=== PATIENT | female | born 1960 | race Caucasian/White ===

== ENCOUNTER → 2016-11-04 | Outpatient (CLI) | payer OTHER ==
[~2016-11-04] MED LIST: MULT-506 PO
[2016-11-04 13:47] LABS: URINE APPEARANCE CLEAR (CLEAR); URINE BILIRUBIN NEG (NEG); URINE COLOR YELLOW; URINE EPITHELIAL CELL AUTO 0-5 /lpf (0-5); URINE NITRITE NEG (NEG); URINE PH 5.5 (4.5-7.5); URINE SPECIFIC GRAVITY 1.009 (1.000-1.030); UROBILINOGEN NEG (NEG)
[2016-11-04 13:51] LABS: MANUAL MICROSCOPIC REQUIRED? NO; REVIEW REQ? NO
== END | disposition home or self-care (01) ==
LOC: C.LABBC 11:08
PROVIDERS: ATTEND Internal Medicine Geriatric Medicine
DX: C50.919 Malignant neoplasm of unspecified site of unspecified female breast (principal); S39.012A Strain of muscle, fascia and tendon of lower back, initial encounter; X58.XXXA Exposure to other specified factors, initial encounter

== ENCOUNTER → 2017-01-07 | Outpatient (CLI) | payer OTHER ==
--- NOTE | 2017-01-08 07:38 | MAMMOGRAPHY REPORT ---
BILATERAL DIGITAL SCREENING MAMMOGRAM TOMOSYNTHESIS WITH CAD: 01/07/2017 CLINICAL HISTORY: Routine screening examination. Personal history of left breast cancer status post treatment. TECHNIQUE: Breast tomosynthesis in addition to standard 2D mammography was performed. Current study was also evaluated with a Computer Aided Detection (CAD) system. COMPARISON: Comparison is made to exams dated: 12/12/2015 mammogram, 11/30/2013 mammogram, 11/24/2012 m ammogram, 11/19/2011 mammogram, 11/13/2010 mammogram, and 05/08/2010 mammogram - [facility] enter. BREAST COMPOSITION: The tissue of both breasts is extremely dense, which lowers the sensitivity of mammography. FINDINGS: There are possibly regional punctate microcalcifications in the superior right breast, be st seen on the MLO view but thought to project laterally based on the CC view. Additional spot magn ification views are recommended. There are expected post treatment changes in the left breast, with asymmetry of the size of the melanie sts. A few surgical clips are seen in the lower inner posterior aspect of the breast. There are a few benign rim calcifications bilaterally. No other suspicious mass, architectural distortion or cl uster of microcalcifications is seen. IMPRESSION: ACR BI-RADS CATEGORY 0: INCOMPLETE EVALUATION: NEED ADDITIONAL IMAGING EVALUATION The possible regional punctate microcalcifications in the superior right breast needs additional leslie luation. The patient will be called to schedule an appointment. Approximately 10% of breast cancers are not detected with mammography. A negative mammographic repor t should not delay biopsy if a clinically suggestive mass is present. Valeria Best M.D. ay/:01/07/2017 17:17:42 Health Sanitarian: Lesley CUNNINGHAM(R)(M), [facility] letter sent: Addl Imaging 0 BI-RADS Code: ACR BI-RADS Category 0: Incomplete Evaluation: Need Additional Imaging Evaluation
== END | disposition home or self-care (01) ==
LOC: C.MAMM 12:25
PROVIDERS: ATTEND Internal Medicine
DX: Z12.31 Encounter for screening mammogram for malignant neoplasm of breast (principal); Z85.3 Personal history of malignant neoplasm of breast; R92.8 Other abnormal and inconclusive findings on diagnostic imaging of breast

== ENCOUNTER → 2017-01-13 | Outpatient (CLI) | payer OTHER ==
--- NOTE | 2017-01-13 16:08 | MAMMOGRAPHY REPORT ---
UNILATERAL RIGHT DIGITAL DIAGNOSTIC MAMMOGRAM: 01/13/2017 CLINICAL HISTORY: 56 are old woman with a personal history of left breast cancer status post treatme nt callback from screening mammography for possible punctate regional microcalcifications in the sup erior right breast. TECHNIQUE: Spot magnification right CC and ML views were obtained. COMPARISON: Comparison is made to exams dated: 12/12/2015 mammogram, 12/06/2014 mammogram, 11/30/2013 ma mmogram, 11/24/2012 mammogram, 11/19/2011 mammogram, and 11/13/2010 mammogram - [facility] enter. BREAST COMPOSITION: The tissue of the right breast is extremely dense, which lowers the sensitivity of mammography. FINDINGS: There are a few round and punctate microcalcifications scattered in the superior right elsa ast. Additionally, there are a few loosely grouped faint punctate microcalcifications in the far chacon perior right breast on the spot magnification ML view. There are no suspicious linear branching or pleomorphic microcalcifications. When comparing to prior available mammograms, the faint punctate m icrocalcifications are slightly more conspicuous compared to remote mammograms although some are pre sent dating back to 2010 on the MLO view. The increased conspicuity may be in part due to differenc es in technique changing equipment from [employer] to [employer]. No obvious associated mass or architectural distortion in this area. IMPRESSION: ACR BI-RADS CATEGORY 0: INCOMPLETE EVALUATION: NEED ADDITIONAL IMAGING EVALUATION 1. There is slight increased conspicuity of faint punctate microcalcifications that are scattered an d loosely grouped in the superior right breast, best seen on the spot magnification ML view. Some o f these microcalcifications were seen on prior standard MLO views dating back to at least 2010, and the changes may be in part due to technical differences switching from [employer] to [employer]. However, given the personal history of left breast cancer and extremely dense breasts further evalu ation with a bilateral breast MRI is recommended to exclude the possibility of non-mass enhancement in this area or any other suspicious enhancement bilaterally. 2. Pending MRI results, as long as there is no suspicious associated enhancement, would recommend f ollow-up diagnostic mammograms of the right breast including spot magnification views in 6 months. These results and recommendations were discussed with the patient at the time of the exam. She tent atively scheduled the follow-up appointments prior to leaving our department. Approximately 10% of breast cancers are not detected with mammography. A negative mammographic repor t should not delay biopsy if a clinically suggestive mass is present. Valeria Best M.D. ay/:01/13/2017 15:14:30 Supervisor Taping: Lesley Kraft, [facility] letter sent: Addl Imaging 0 BI-RADS Code: ACR BI-RADS Category 0: Incomplete Evaluation: Need Additional Imaging Evaluation
== END | disposition home or self-care (01) ==
LOC: C.MAMM 14:08
PROVIDERS: ATTEND Internal Medicine
DX: R92.1 Mammographic calcification found on diagnostic imaging of breast (principal); R92.0 Mammographic microcalcification found on diagnostic imaging of breast

== ENCOUNTER → 2017-02-03 | Outpatient (CLI) | payer OTHER ==
[~2017-02-03] MED LIST changes: +GADAVIST IV PRN
--- NOTE | 2017-02-04 12:17 | MAMMOGRAPHY REPORT ---
BREAST MRI OF BOTH BREASTS : 02/03/2017 CLINICAL HISTORY: 56-year-old woman with a personal history of left breast cancer diagnosed in 1999, status post lumpectomy. There are increasingly conspicuous faint punctate microcalcifications in t he superior right breast for which MRI was recommended to exclude corresponding abnormal non-mass en hancement. COMPARISON: Comparison is made to exams dated: 01/07/2017 mammogram, 12/12/2015 mammogram, 12/06/2014 surya mogram, 11/30/2013 mammogram, 11/24/2012 mammogram, and 11/19/2011 mammogram - [facility] nter. TECHNIQUE: Using a 1.5 Johana magnet and dedicated breast coil, multisequence axial images were obtai freddy through the breasts. After uneventful IV administration of 6.5 mL of Gadavist, dynamic multipha se contrast-enhanced axial images, and sagittal postcontrast were obtained. Temporal subtraction ax ial images and 3-D MIP images are provided. Everything was then reviewed on a 3-D workstation, [id number]. FINDINGS: Right breast: There is minimal background parenchymal enhancement of the right breast. There is no regional or segmental non-mass enhancement in the superior right breast to correlate with the faint microcalcifications seen mammographically. Given the mammographic stability back to approximately 2 011 these are most likely benign, but follow-up diagnostic mammograms including repeat spot magnific ation views are recommended to ensure stability in 6 months. No suspicious spiculated or enhancing mass is seen. However, there is a single focus versus 2 adjacent foci of non-mass enhancement in th e approximate 9:00 right breast, 4.5 cm distal to the nipple (axial image 75/116), measuring 3.8 x 4 .7 mm. No corresponding T2 hyperintensity appreciated. There are mixed persistent and plateau kine tics. Although these foci may be within the range of normal background, given the conspicuity and l ack of prior available exams to ensure stability, a short interval follow-up breast MRI is recommend ed in 6 months. No focal skin thickening or nipple retraction is seen in the right breast. The ret romammary fat is intact. No suspicious right axillary, subpectoral or internal mammary lymphadenopa thy is identified. Left breast: There is no significant background parenchymal enhancement of the left breast. There i s susceptibility artifact in the 9:00 and 10:00 posterior left breast as well as within the left axi lla, from previous lumpectomy and axillary lymph node sampling. There is also asymmetry of the size of the breasts likely related to prior treatment within the left breast. No new suspicious enhanci ng mass, non-mass enhancement or suspicious kinetics are identified in the left breast. No focal sk in thickening or evidence of nipple retraction. No suspicious left axillary, subpectoral or interna l mammary lymphadenopathy. Note is made of pectus excavatum of the chest. IMPRESSION: ACR-BI-RADS CATEGORY 3: PROBABLY BENIGN 1. There is no suspicious non-mass enhancement or enhancing mass in the superior right breast to co rrespond to the faint punctate regional microcalcifications seen mammographically. The microcalcifi cations are probably benign, but follow-up diagnostic right mammograms including spot magnification views are recommended to ensure stability in 6 months. 2. There are 2 adjacent foci versus a single focus of non-mass enhancement within the approximate 9 :00 right breast, measuring 3.8 x 4.7 mm, that could be within the range of background. However, a short interval follow-up breast MRI is recommended to ensure stability in 6 months. 3. Expected post-therapeutic changes in the left breast, without MRI evidence of malignancy. The patient will receive written notification of the results. Valeria Best M.D. ay/:02/03/2017 23:17:47 Inspector Returned Materials: hat brim curler, [facility] letter sent: Follow Up Recommended 3 BI-RADS Code: ACR-BI-RADS Category 3: Probably Benign
== END | disposition home or self-care (01) ==
LOC: C.MRI 08:41
PROVIDERS: ATTEND Internal Medicine
DX: R92.0 Mammographic microcalcification found on diagnostic imaging of breast (principal); R92.8 Other abnormal and inconclusive findings on diagnostic imaging of breast

== ENCOUNTER → 2017-04-24 | Outpatient (CLI) | payer OTHER ==
[~2017-04-24] MED LIST changes: -GADAVIST IV PRN
== END | disposition home or self-care (01) ==
LOC: C.PAPS 08:31
PROVIDERS: ATTEND Physician Assistant
DX: Z12.4 Encounter for screening for malignant neoplasm of cervix (principal)

== ENCOUNTER → 2017-04-28 | Outpatient (CLI) | payer OTHER ==
--- NOTE | 2017-04-28 13:37 | DIAGNOSTIC IMAGING REPORT ---
THYROID ULTRASOUND HISTORY: Thyroid nodule RT THYROID NODULE COMPARISON: 04/29/2016 FINDINGS: Right lobe: Interval decrease in volume of a right thyroid lobe nodule. Maximum current dimensions 9 mm. This is diminished in the prior dimension of 1.1 cm. Area all remaining components of the thyroid appear to be unchanged. Left lobe: No significant nodularity. Isthmus: No nodules. IMPRESSION: 1. Improved nodularity of the right thyroid with the 1.1 cm nodule now currently measuring 9 mm. 2. Given this interval improvement, biopsy was deferred 3. No new, additional, or progressive lesions. 4. Follow-up ultrasound in one to 2 years suggested Electronically signed by: Lucien Vazquez M.D. 04/28/2017 1:35 PM Dictated Date/Time: 04/28/2017 1:32 PM
[2017-04-28 14:15] LABS: BLOOD UREA NITROGEN 18 mg/dl (7-18); BUN/CREATININE RATIO 27.1 (10-20); CALCIUM 9.3 mg/dl (8.5-10.1); CARBON DIOXIDE 29 mmol/L (21-32); CHLORIDE 104 mmol/L (98-107); CHOLESTEROL 178 mg/dl (0-200); CREATININE 0.66 mg/dl (0.60-1.20); GLUCOSE 87 mg/dl (70-99); POTASSIUM 3.9 mmol/L (3.5-5.1); SODIUM 140 mmol/L (136-145); TRIGLYCERIDES 72 mg/dl (0-150); VERY LOW DENSITY LIPOPROT CALC 14 mg/dl
[2017-04-28 14:26] LABS: CHOLESTEROL/HDL RATIO 2.2; HDL CHOLESTEROL 82 mg/dl; LDL CHOLESTEROL CALCULATED 82 mg/dl
== END | disposition home or self-care (01) ==
LOC: C.ULTR 12:23
PROVIDERS: ATTEND Physician Assistant Medical
DX: E04.1 Nontoxic single thyroid nodule (principal); Z11.59 Encounter for screening for other viral diseases; Z00.00 Encounter for general adult medical examination without abnormal findings

== ENCOUNTER → 2017-06-23 | Outpatient (CLI) | payer OTHER ==
--- NOTE | 2017-06-23 15:24 | MAMMOGRAPHY REPORT ---
UNILATERAL RIGHT DIGITAL DIAGNOSTIC MAMMOGRAM TOMOSYNTHESIS WITH CAD: 06/23/2017 CLINICAL HISTORY: 57-year-old woman with a personal history of left breast cancer and strong family h istory of breast cancer presents for follow-up in the right breast, with particular attention to marya t scattered and grouped punctate and amorphous microcalcifications throughout the superior posterior breast. TECHNIQUE: Right breast CC and MLO 2-D and tomosynthesis images, spot magnification right CC, XCCL an d ML views were obtained. Current study was also evaluated with a Computer Aided Detection (CAD) sys tem. COMPARISON: Comparison is made to exams dated: 02/03/2017 breast MRI, 01/13/2017 mammogram, 01/07/2017 ma mmogram, 12/12/2015 mammogram, 12/06/2014 mammogram, and 11/30/2013 mammogram - [facility]. BREAST COMPOSITION: The tissue of the right breast is extremely dense, which lowers the sensitivity of mammography. FINDINGS: The parenchymal pattern of the right breast similar to prior mammograms. No obvious new ma ss, focal area of architectural distortion or new microcalcifications are identified. On the full fi eld right cc and spot magnification right ML views, there are scattered and grouped punctate and marcio phous microcalcifications in the superior posterior breast, mostly in the 12:00 and lateral breast ba sed on the CC projection. These do not appear significantly changed in number or distribution when c omparing to the prior spot magnification views obtained 01/13/2017, and were possibly present on prio r full-field mammograms dating back to 2010, therefore likely benign. However, another short interva l follow-up right diagnostic mammogram including spot magnification views is recommended to ensure lo nger stability in 6 months. Annual left mammography will be due at that time. The patient is also due for a follow-up breast MRI in August 2017 to ensure stability of 2 adjacent foci of enhancement in the right 9:00 breast, described on the MRI report. IMPRESSION: ACR-BI-RADS CATEGORY 3: PROBABLY BENIGN 1. Stable mammographic appearance of the right breast, including scattered and grouped punctate and a morphous microcalcifications in the superior posterior breast. Another short interval follow-up right diagnostic mammogram including spot magnification views is recommended to ensure longer stability in 6 months. Annual left mammography will be due at that time. 2. The patient is also due for a follow-up breast MRI in August 2017 to ensure stability of 2 adjace nt foci of enhancement in the right 9:00 breast, described on the MRI report. Approximately 10% of breast cancers are not detected with mammography. A negative mammographic report should not delay biopsy if a clinically suggestive mass is present. Valeria Best M.D. ay/:06/23/2017 09:14:47 Neuropsychology Medical Consultant: Lesley CUNNINGHAM(R)(M), [facility] letter sent: Follow Up Recommended 3 BI-RADS Code: ACR-BI-RADS Category 3: Probably Benign
== END | disposition home or self-care (01) ==
LOC: C.MAMM 08:37
PROVIDERS: ATTEND Internal Medicine
DX: Z09 Encounter for follow-up examination after completed treatment for conditions other than malignant neoplasm (principal); R92.0 Mammographic microcalcification found on diagnostic imaging of breast